=== PATIENT | male | born 1975 | race Caucasian/White ===

== ENCOUNTER → 2022-11-20 23:19 | Outpatient (CLI) | payer BC, SELFPAY ==
[2022-11-20 18:17] LABS: Basophils # 0.1 K/mm3 (0-0.2); Basophils % 0.5 % (0.1-2.0); Eosinophils # 0.4 K/mm3 (0.0-0.4); Eosinophils % 3.1 % (0.1-12.0); Hematocrit 51.3 % (42.0-52.0); Hemoglobin 16.8 g/dL (14.1-18.0); Lymphocytes # 2.5 K/mm3 (0.7-4.5); Mean Corpuscular HGB Conc 32.7 g/dL (31.8-35.4); Mean Corpuscular Volume 98.1 fl (80-94); Mean Platelet Volume 10.6 fl (7.4-10.4); Monocytes # 0.7 K/mm3 (0.1-1.0); Monocytes % 5.5 % (1.7-9.3); Neutrophils # 9.5 K/mm3 (1.8-7.8); Neutrophils % 71.8 % (37.0-80.0); Platelet Count 244 K/mm3 (142-424); Red Blood Count 5.23 M/mm3 (4.60-6.20); Red Cell Distribution Width 13.4 % (11.5-17.5); White Blood Count 13.2 K/mm3 (4.8-10.8)
[2022-11-20 18:20] LABS: Alanine Aminotransferase 38 U/L (12-78); Albumin Level 4.2 g/dl (3.5-5.0); Albumin/Globulin Ratio 1.6 (1.1-1.8); Alkaline Phosphatase 80 U/L (38-126); Anion Gap 14.7 mEq/L (5-15); Aspartate Amino Transferase 41 U/L (17-59); Bilirubin,Total 0.5 mg/dl (0.2-1.3); Blood Urea Nitrogen 11 mg/dl (9-20); Calcium 9.3 mg/dl (8.4-10.2); Carbon Dioxide 24 mmol/L (22.0-30.0); Chloride 108 mmol/L (98-107); Chol/HDL Ratio 6.4 (1-3.5); Cholesterol 192 mg/dl (140-200); Estimated Glomerular Filt Rate 72 ml/min (>60); GFR (African American) 88 ML/MIN (>60); Globulin 2.6 g/dL (1.3-3.2); Glucose 100 mg/dl (74-100); HDL Cholesterol 30 mg/dl (40-60); Potassium 4.7 mmoL/L (3.5-5.1); Sodium 142 mmol/L (136-145); Total Protein,Serum 6.8 g/dl (6.3-8.2); Triglycerides 223 mg/dl (30-150); VLDL Cholesterol 45 mg/dL (0-40)
[2022-11-20 18:27] LABS: Hemoglobin A1C 5.4 % (4.0-6.0)
[2022-11-20 18:31] LABS: Direct LDL Cholesterol 120.13 mg/dL (100-129)
[2022-11-20 18:39] LABS: 25-OH Vitamin D, Total 34.7 ng/mL (30-100)
[2022-11-20 18:52] LABS: Prostate Specific Ag Screen 0.8 ng/ml (0.0-4.0); Thyroid Stimulating Hormone 1.28 uIU/mL (0.465-4.68)
== END ==
LOC: LAB.DROPOF 23:19
PROVIDERS: PCP Student in an Organized Health Care Education/Training Program; Visit Provider Student in an Organized Health Care Education/Training Program
DX: Z13.29 Encounter for screening for other suspected endocrine disorder (principal); Z13.220 Encounter for screening for lipoid disorders; E55.9 Vitamin D deficiency, unspecified; Z83.3 Family history of diabetes mellitus; Z12.5 Encounter for screening for malignant neoplasm of prostate; Z76.89 Persons encountering health services in other specified circumstances
CPT/HCPCS: 80053; 80061; 82306; 83036; 84443; 85025; G0103

== ENCOUNTER → 2023-04-05 12:00 | Outpatient (CLI) | payer BC, SELFPAY ==
[2023-04-05 18:36] LABS: Basophils # 0.1 K/mm3 (0-0.2); Basophils % 0.4 % (0.1-2.0); Eosinophils # 0.4 K/mm3 (0.0-0.4); Eosinophils % 3.3 % (0.1-12.0); Hematocrit 50.8 % (42.0-52.0); Lymphocytes # 3.1 K/mm3 (0.7-4.5); Lymphocytes % 26.9 % (10-50); Mean Corpuscular HGB Conc 33.4 g/dL (31.8-35.4); Mean Corpuscular Hemoglobin 33.3 pg (27.0-31.2); Mean Corpuscular Volume 99.5 fl (80-94); Mean Platelet Volume 10.5 fl (7.4-10.4); Monocytes # 0.7 K/mm3 (0.1-1.0); Monocytes % 5.7 % (1.7-9.3); Neutrophils # 7.3 K/mm3 (1.8-7.8); Neutrophils % 63.6 % (37.0-80.0); Platelet Count 245 K/mm3 (142-424); White Blood Count 11.5 K/mm3 (4.8-10.8)
[2023-04-08 08:04] LABS: Peripheral Smear Review Scanned Result
== END ==
LOC: LAB.DROPOF 04-06 00:51
PROVIDERS: PCP Student in an Organized Health Care Education/Training Program; Visit Provider Student in an Organized Health Care Education/Training Program
DX: M25.561 Pain in right knee (principal); D72.829 Elevated white blood cell count, unspecified
CPT/HCPCS: 85025

== ENCOUNTER → 2023-04-15 12:12 | Outpatient (CLI) | payer BC, SELFPAY ==
[2023-04-15 15:01] LABS: Folate 4.28 ng/mL; Vitamin B12 > 1000 pg/mL (239-931)
== END ==
LOC: LAB 12:13
PROVIDERS: Visit Provider Internal Medicine Medical Oncology
DX: D75.89 Other specified diseases of blood and blood-forming organs (principal)
CPT/HCPCS: 36415; 82607; 82746

== ENCOUNTER 2023-06-23 21:00 | Outpatient (CLI) | payer BC, SELFPAY ==
[2023-06-23 17:54] LABS: Adenovirus,PCR Not Detected (NotDetected); Coronavirus 19, PCR Not Detected (NotDetected); Coronavirus 229E Not Detected (NotDetected); Coronavirus NL63 Not Detected (NotDetected); Coronavirus OC43 Not Detected (NotDetected); Coronovirus HKU1,PCR Not Detected (NotDetected); Human Metapneumovirus Not Detected (NotDetected); Influenza A, PCR Not Detected (NotDetected); Influenza AH1, 2009 Not Detected (NotDetected); Influenza AH1, PCR Not Detected (NotDetected); Influenza AH3,PCR Not Detected (NotDetected); Influenza B, PCR Not Detected (NotDetected); Parainfluenza 1, PCR Not Detected (NotDetected); Parainfluenza 2, PCR Not Detected (NotDetected); Parainfluenza 3, PCR Not Detected (NotDetected); Parainfluenza 4, PCR Not Detected (NotDetected); Respiratory Syncytial Virus Not Detected (NotDetected); Rhinovirus/Enterovirus Not Detected (NotDetected)
== END 2023-06-23 23:59 ==
LOC: LAB.DROPOF 21:00
PROVIDERS: PCP Nurse Practitioner Family; Visit Provider Nurse Practitioner Family
DX: R68.89 Other general symptoms and signs (principal); J02.9 Acute pharyngitis, unspecified; R11.0 Nausea; R50.9 Fever, unspecified; Z20.828 Contact with and (suspected) exposure to other viral communicable diseases
CPT/HCPCS: 87581; 87632; 87635; 87798

== ENCOUNTER 2023-09-06 12:31 | Outpatient (CLI) | payer BC, SELFPAY ==
[2023-09-06 18:47] LABS: Basophils # 0.1 K/mm3 (0-0.2); Basophils % 0.8 % (0.1-2.0); Eosinophils # 0.5 K/mm3 (0.0-0.4); Eosinophils % 4.2 % (0.1-12.0); Hematocrit 51.8 % (42.0-52.0); Hemoglobin 16.7 g/dL (14.1-18.0); Lymphocytes # 2.7 K/mm3 (0.7-4.5); Lymphocytes % 24.4 % (10-50); Mean Corpuscular HGB Conc 32.3 g/dL (31.8-35.4); Mean Corpuscular Hemoglobin 32.8 pg (27.0-31.2); Mean Corpuscular Volume 101.5 fl (80-94); Mean Platelet Volume 10.2 fl (7.4-10.4); Monocytes # 0.6 K/mm3 (0.1-1.0); Monocytes % 5.6 % (1.7-9.3); Neutrophils # 7.2 K/mm3 (1.8-7.8); Neutrophils % 65.1 % (37.0-80.0); Platelet Count 245 K/mm3 (142-424); Red Cell Distribution Width 13.7 % (11.5-17.5)
[2023-09-06 18:56] LABS: Alanine Aminotransferase 53 U/L (12-78); Albumin Level 4.4 g/dl (3.5-5.0); Albumin/Globulin Ratio 1.6 (1.1-1.8); Alkaline Phosphatase 81 U/L (38-126); Anion Gap 12.1 mEq/L (5-15); Aspartate Amino Transferase 50 U/L (17-59); Bilirubin,Total 0.9 mg/dl (0.2-1.3); Blood Urea Nitrogen 16 mg/dl (9-20); Calcium 9.3 mg/dl (8.4-10.2); Carbon Dioxide 22 mmol/L (22.0-30.0); Chloride 107 mmol/L (98-107); Chol/HDL Ratio 7.8 (1-3.5); Cholesterol 233 mg/dl (140-200); Estimated Glomerular Filt Rate 65 ml/min (>60); GFR (African American) 79 ML/MIN (>60); Globulin 2.8 g/dL (1.3-3.2); Glucose 111 mg/dl (74-100); HDL Cholesterol 30 mg/dl (40-60); Potassium 4.1 mmoL/L (3.5-5.1); Sodium 137 mmol/L (136-145); Total Protein,Serum 7.2 g/dl (6.3-8.2); Triglycerides 281 mg/dl (30-150); VLDL Cholesterol 56 mg/dL (0-40)
[2023-09-06 19:07] LABS: Direct LDL Cholesterol 129.13 mg/dL (100-129)
[2023-09-06 19:13] LABS: 25-OH Vitamin D, Total 15.1 ng/mL (30-100)
[2023-09-06 19:25] LABS: Hemoglobin A1C 5.6 % (4.0-6.0)
[2023-09-06 19:27] LABS: Thyroid Stimulating Hormone 1.37 uIU/mL (0.465-4.68)
== END 2023-09-06 23:59 | disposition home or self-care (01) ==
LOC: LAB.DROPOF 09-07 12:31
PROVIDERS: PCP Student in an Organized Health Care Education/Training Program; Visit Provider Student in an Organized Health Care Education/Training Program
DX: R20.0 Anesthesia of skin (principal); E55.9 Vitamin D deficiency, unspecified; Z68.25 Body mass index [BMI] 25.0-25.9, adult
CPT/HCPCS: 80053; 80061; 82306; 83036; 84443; 85025

== ENCOUNTER 2023-09-29 13:01 | Outpatient (CLI) | payer BC, SELFPAY ==
--- NOTE | 2023-09-29 13:01 | MR_ITS ---
FINAL REPORT CLINICAL HISTORY: left facial numbness, trigeminal neuralgia, LUE nu FINDINGS: Multiple projection images of the brain arterial vasculature were obtained without and with contrast. Raw data images were also reviewed. The internal carotid arteries are patent. The middle cerebral arteries and visualized proximal branches are patent. The anterior cerebral arteries are patent. The intracranial vertebral arteries are patent. The basilar artery is patent. The posterior cerebral arteries are patent. IMPRESSION: No major vessel occlusion. Reviewed, Interpreted and Dictated by Lamin Arenas MD Transcribed by Bianca Chua Authenticated and . [facility]
--- NOTE | 2023-09-29 13:01 | MR_ITS ---
FINAL REPORT CLINICAL HISTORY: left facial numbness, trigeminal neuralgia, lue nu FINDINGS: Multiplanar MR imaging of the brain was performed without and with contrast. There are minimal scattered foci of abnormal signal in the deep white matter. There are no foci of cortical signal abnormality. There is no evidence of intracranial hemorrhage or mass. No abnormal extra-axial fluid collection is seen. The ventricular size is within normal limits. There is no evidence of shift of the midline structures. The posterior fossa and brainstem have an unremarkable appearance. No area of abnormal restricted diffusion is identified. No abnormal contrast enhancement is seen. Normal major vessel vascular flow voids are noted. IMPRESSION: No acute intracranial abnormality identified. Minimal scattered foci of abnormal signal in the deep white matter. Reviewed, Interpreted and Dictated by Lamin Arenas MD Transcribed by Bianca Chua Authenticated and [facility]
[2023-09-29] MEDS: SODIUM CHLORIDE 0.9% 10ML SYR (RAD ONLY) 10 ML IV (14:01)
[2023-09-29] MEDS: GADOTERIDOL INJ 20ML SYRINGE 18 ML IV (14:01)
== END 2023-09-29 23:59 | disposition home or self-care (01) ==
LOC: RAD 13:01
PROVIDERS: PCP Student in an Organized Health Care Education/Training Program; Visit Provider Student in an Organized Health Care Education/Training Program
DX: R20.0 Anesthesia of skin (principal); G50.0 Trigeminal neuralgia
CPT/HCPCS: 70546; 70553; A9576

== ENCOUNTER 2023-11-16 12:08 | Emergency (ER) | payer BC, SELFPAY ==
[2023-11-16 12:09] VITALS: BP 131/88; PULSE 63; RESP 17; TEMP 36.7; O2SAT 100; BMI 26.4
--- NOTE | 2023-11-16 12:15 | ECG_ITS ---
APPROVED REPORT Exam: Resting ECG HR:54 bpm ECG Measurements Heart Rate 54 AXES OR 133 P 70 QRSd 109 QRS 75 QT 404 T 56 QTc 390 Conclusion SINUS BRADYCARDIA BORDERLINE ECG UNCONFIRMED REPORT Electronically signed by : RENNY LEIJA, 11/16/2023 13:27:47
--- NOTE | 2023-11-16 12:15 | HMH.EDGENADL ---
Discharge Plan Disposition Patient Disposition: Home, Self-Care Condition: Good Prescriptions Prescriptions: No Action cholecalciferol (vitamin D3) 1,250 mcg (50,000 unit) tablet 1,250 mcg PO WEEKLY Qty: 12 0RF atorvastatin 20 mg tablet 20 mg PO DAILY Qty: 90 3RF Referrals Follow up/Referrals: Kathy Orellana PA [Primary Care Provider] - See instructions Activity Restrictions/Add. Instructions Additional Instructions/Restrictions: You have been evaluated in the ED for your complaints. You may follow-up with your PCP in the next 3 to 5 days. Please return to ED for any new or worsening symptoms. . Take Tylenol and ibuprofen as needed for pain. Clinical Impressions Clinical Impression: Fall, Hip pain, left, Pain in sacrum Discharge ED Provider: Benjamin Boone Adult HPI General Chief complaint: Fall Stated complaint: AO fall 2:00 15/ lower back pain Time Seen by Provider: 11/16/23 12:13 History of Present Illness HPI narrative: 48-year-old male with past medical history significant for HLD presents today with spouse for evaluation concerning fall that occurred around 2 PM yesterday. Patient reportedly fell about 6 to 7 feet through their deck. He did hit his head during his fall but did not lose consciousness. Spouse states that he seemed dazed after hitting his head and she also noted that he had a period of shaking which resolved after a few minutes with patient being at his baseline thereafter. He was able to ambulate without difficulty throughout the day. Today he complains of left hip pain and sacral pain. Denies any headache, neck pain, back pain, chest pain, abdominal pain, other extremity pain or any other associated symptoms at this time. He is not on blood thinners. No further complaints Related Data Previous Rx's Medication Instructions Recorded atorvastatin 20 mg tablet 20 mg PO DAILY #90 tabs 09/07/23 cholecalciferol (vitamin D3) 1,250 1,250 mcg PO WEEKLY #12 tabs 10/06/23 mcg (50,000 unit) tablet Allergies Allergy/AdvReac Type Severity Reaction Status Date / Time No Known Allergies Allergy Verified 10/05/23 13:06 [facility] Disclaimer: The information contained in this section may have been updated after the patient was seen, as this information can be updated by other users. Medical History Right knee pain Family history of diabetes mellitus Family history of coronary artery disease Tobacco use disorder Surgical History No significant past surgical history Family History Father Diabetes Hypertension Alcoholism Mother Diabetes Social History Smoking Status: Current every day smoker tobacco type: cigarettes packs per day: 1 alcohol intake: current alcohol intake frequency: holidays/special occasions only substance use type: denies use current occupational status: employed Travel in the last 8 weeks: None adopted: No caregiver/support person: No foster care: No household members: family housing: house lives independently: Yes marital status: number of children: 1 service: No residential: No pets and animals: Yes Hx Recent Travel: No sexually active: Yes ROS Obtained: Yes All systems reviewed & no additional complaints except as documented Physical Exam General General appearance: alert and in no apparent distress Head Head exam: atraumatic, normocephalic and other (Small superficial abrasion lateral to the right eye) Eye Eye exam: Present normal appearance, PERRL and EOMI ENT ENT exam: Present normal oropharynx and mucous membranes moist Neck Neck exam: Present full ROM; Absent meningismus Respiratory Respiratory exam: Absent respiratory distress, wheezes, stridor or accessory muscle use Cardiovascular Cardiovascular exam: Present normal rhythm Abdominal Exam Abdominal exam: Present soft; Absent distention, tenderness, guarding, rebound or rigidity Extremities Exam Extremities exam: Present normal inspection and full ROM Back Exam Back exam: Present full ROM; Absent tenderness Neurological Exam Neurological exam: Present alert, oriented X3 and CN II-XII intact; Absent motor sensory deficit Psychiatric Psychiatric exam: Present normal affect and normal mood Skin Skin exam: Present warm and dry Medical Decision Making Medical Records Medical records reviewed: Yes I reviewed the patient's medical records. Toby Inquiry Pt receiving controlled substance: No Toby was queried for this patient: No Vital Signs: 11/16/23 12:09 11/16/23 13:00 11/16/23 13:30 Temperature 98.0 F Temperature Source Oral Pulse Rate 54 L 59 L Pulse Rate [Left Radial] 63 Respiratory Rate 17 Blood Pressure 131/92 H 130/79 Blood Pressure [Right Arm] 131/88 Blood Pressure Mean [Right Arm] 102 Blood Pressure Source Blood Pressure Position 02 Sat by Pulse Oximetry 100 97 97 Oxygen Delivery Method Room Air Room Air 11/16/23 13:57 11/16/23 13:58 Temperature 98.0 F 98.4 F Temperature Source Oral Pulse Rate 60 56 L Pulse Rate [Left Radial] Respiratory Rate 13 14 Blood Pressure 130/79 130/79 Blood Pressure [Right Arm] Blood Pressure Mean [Right Arm] Blood Pressure Source Automatic Cuff Blood Pressure Position Sitting 02 Sat by Pulse Oximetry Oxygen Delivery Method Room Air Orders (Tests/Meds): ORDERS Category Date Time Status CT head/brain wo con Stat Cat Scan 11/16/23 12:24 Completed Hip XR left minimum 2 views [XR hip LT 2-3V w/pelvis] Exams 11/16/23 12:24 Completed Stat XR sacrum coccyx min 2V Stat Exams 11/16/23 12:24 Completed Medical Decision Narrative: 48-year-old male with past medical history significant for HLD presents today with spouse for evaluation concerning fall that occurred around 2 PM yesterday. Patient reportedly fell about 6 to 7 feet through their deck. He did hit his head during his fall but did not lose consciousness. Spouse states that he seemed dazed after hitting his head and she also noted that he had a period of shaking which resolved after a few minutes with patient being at his baseline thereafter. He was able to ambulate without difficulty throughout the day. Today he complains of left hip pain and sacral pain. Denies blood thinner use. On assessment he was hemodynamically stable and in no acute distress. He was able to ambulate without difficulty. Chest clear to auscultation bilaterally. Abdomen soft nondistended and nontender to palpation. No midline tenderness palpation of the C/T/L-spine. He did have a small superficial abrasion lateral to the right eye. No other external signs of trauma here. Nonfocal neurological exam. He did have mild tenderness to palpation over the left hip and mild tenderness over the sacral region. Other physical exam findings unremarkable. Differential diagnoses include not limited to intracranial bleed, concussion, hip fracture, sacral fracture, musculoskeletal pain, among others Patient did not want any pain medications while in the ED. His CT head on my informal interpretation did not show any acute head bleeds. X-ray of the left hip including pelvis and sacrum did not show any acute fractures. On reassessment patient remains hemodynamically stable and in no acute distress. He and his significant other have noted that they would like to be discharged at this time given that patient's symptoms are well-controlled at this time. I discussed with patient/family that his CT head results are not finalized however I did not note any acute head bleeds on my informal interpretation. I also discussed with him that I do not note any acute bony abnormalities on plain films. Shared decision-making discussion was had and given reassuring physical exam both before and after reassessment, I will call to update patient with his results. He has noted that in the event that there are any abnormalities he can return. Provided him with strict return precautions and instructions concerning follow-up. He verbalized understanding and agreed with plan. Subsequently discharged. Note: 1431: patient's x-ray of the left hip including the pelvis, sacral x-ray and CT head all without any acute abnormalities. I did call patient and relayed these results. He states that he remains improved. Critical Care Critical Care Time Critical Care Time: No
--- NOTE | 2023-11-16 12:24 | XR_ITS ---
FINAL REPORT CLINICAL HISTORY: pain after a fall FINDINGS: AP and lateral views of the sacrum and coccyx were obtained. There is no prior exam for comparison. There is no acute fracture or other acute osseous abnormality. The SI joints are symmetric bilaterally. The sacrococcygeal articulation appears within normal limits. No acute soft tissue abnormality is present. IMPRESSION: No acute abnormality of the sacrum or coccyx. Reviewed, Interpreted and Dictated by Linda Beach MD Transcribed by Yumiko Noriega Authenticated and [facility]
--- NOTE | 2023-11-16 12:24 | CT_ITS ---
FINAL REPORT TECHNIQUE: Thin section axial images were obtained from skull base to vertex without contrast. Coronal reconstruction images were obtained from the axial data. Exam was performed using dose reduction technique. CLINICAL HISTORY: fall with head injury COMPARISON: None FINDINGS: There is no mass effect or midline shift. There is no hydrocephalus. There is no intracranial hemorrhage. The posterior fossa is without acute abnormality. The basilar cisterns are preserved. There is mild right periorbital and infraorbital soft tissue edema. No acute osseous abnormality is identified. IMPRESSION: No acute intracranial abnormality. Reviewed, Interpreted and Dictated by Linda Beach MD Transcribed by Yumiko Noriega Authenticated and [facility]
--- NOTE | 2023-11-16 12:24 | XR_ITS ---
FINAL REPORT CLINICAL HISTORY: pain after a fall FINDINGS: AP and frog leg views of the left hip were obtained. There is no prior exam for comparison. There is no acute fracture or dislocation. Joint space is preserved. Soft tissues are within normal limits. IMPRESSION: No acute osseous abnormality of the left hip. If pain persists, MR is recommended. Reviewed, Interpreted and Dictated by Linda Beach MD Transcribed by Yumiko Noriega Authenticated and [facility]
[2023-11-16 13:00] VITALS: BP 131/92; PULSE 54; O2SAT 97
[2023-11-16 13:30] VITALS: BP 130/79; PULSE 59; O2SAT 97
[2023-11-16 13:57] VITALS: BP 130/79; PULSE 60; RESP 13; TEMP 36.7
[2023-11-16 13:58] VITALS: BP 130/79; PULSE 56; RESP 14; TEMP 36.9; O2SAT 98
== END 2023-11-16 13:57 | disposition home or self-care (01) ==
PROVIDERS: Emergency Provider Emergency Medicine; PCP Student in an Organized Health Care Education/Training Program
DX: M53.3 Sacrococcygeal disorders, not elsewhere classified (principal); M25.552 Pain in left hip; R00.1 Bradycardia, unspecified; F17.210 Nicotine dependence, cigarettes, uncomplicated; W17.89XA Other fall from one level to another, initial encounter
CPT/HCPCS: 70450; 72220; 73502; 93005; 99284

== ENCOUNTER 2024-04-29 17:39 | Emergency (ER) | payer BC, SELFPAY ==
[2024-04-29 17:41] VITALS: BP 156/91; PULSE 60; RESP 16; TEMP 36.6; O2SAT 98; BMI 25.2; BMI 27.6
--- NOTE | 2024-04-29 17:53 | XR_ITS ---
PROCEDURE INFORMATION: Exam: XR Left Tibia and Fibula Exam date and time: 04/29/2024 6:13 PM Age: 48 years old Clinical indication: Injury or trauma; Fall; Blunt trauma; Ankle; Left TECHNIQUE: Imaging protocol: Radiologic exam of the left tibia and fibula. Views: 2 views. COMPARISON: CR XR TIBIA FIBULA LT 2V 04/29/2024 6:13 PM FINDINGS: Bones/joints: Partially visualized comminuted intra-articular fracture of the calcaneus. Soft tissues: Normal. IMPRESSION: Partially visualized comminuted intra-articular fracture of the calcaneus. No evidence for more proximal fracture.
--- NOTE | 2024-04-29 17:53 | XR_ITS ---
PROCEDURE INFORMATION: Exam: XR Left Foot Exam date and time: 04/29/2024 6:13 PM Age: 48 years old Clinical indication: Injury or trauma; Fall; Blunt trauma; Ankle; Left TECHNIQUE: Imaging protocol: Radiologic exam of the left foot. Views: 3 or more views. COMPARISON: CR XR ANKLE LT MIN 3V 04/29/2024 6:13 PM FINDINGS: Bones/joints: Comminuted intra-articular fracture of the calcaneus. There is a plantar calcaneal enthesophyte. Small osseous fragment adjacent to the lateral malleolus may reflect old injury. Soft tissues: Normal. IMPRESSION: Comminuted intra-articular fracture of the calcaneus.
--- NOTE | 2024-04-29 17:53 | XR_ITS ---
PROCEDURE INFORMATION: Exam: XR Left Ankle Exam date and time: 04/29/2024 6:13 PM Age: 48 years old Clinical indication: Injury or trauma; Fall; Blunt trauma; Ankle; Left TECHNIQUE: Imaging protocol: Radiologic exam of the left ankle. Views: 3 or more views. COMPARISON: CR XR ANKLE LT MIN 3V 04/29/2024 6:13 PM FINDINGS: Bones/joints: Comminuted intra-articular fracture of the calcaneus. Soft tissues: Normal. IMPRESSION: Comminuted intra-articular fracture of the calcaneus.
--- NOTE | 2024-04-29 17:55 | ED_ITS ---
Discharge Plan Disposition Patient Disposition: Home, Self-Care Condition: Good Prescriptions Prescriptions: New hydrocodone-acetaminophen 7.5-325 mg tablet 1 tab PO Q6H PRN (Reason: pain) Qty: 14 0RF ondansetron 4 mg tablet,disintegrating 4 mg PO Q6H PRN (Reason: nausea and vomiting) Qty: 10 0RF No Action cholecalciferol (vitamin D3) 1,250 mcg (50,000 unit) tablet 1,250 mcg PO WEEKLY Qty: 12 0RF atorvastatin 20 mg tablet 20 mg PO DAILY Qty: 90 3RF Referrals Follow up/Referrals: Kathy Orellana PA [Primary Care Provider] - See instructions Umer Hernandez DO [Staff Physician] - See instructions Activity Restrictions/Add. Instructions Additional Instructions/Restrictions: NO Weight bearing rest Ice with cold pack for 20 minutes remove may repeat for comfort every hour Elevate with ankle above your heart as much as possible to help reduce swelling and therefore pain Ibuprofen every 6 hours as needed for pain or inflammation. Follow-up immediately if new or worsening symptoms or no noticeable improvement over the next 3-5 days. call ortho on Wednesday for an appointment Follow-up with orthopedic trauma at [facility] address: [address] [place] [address], [facility], [address] [place] [address] Hours: Sun:?Closed Wed-Wed:?7:30 am - 5:00 pm Sat:?Closed Phone: Call?[phone] Call?[phone] Clinical Impressions Clinical Impression: Closed left calcaneal fracture Qualifiers: Encounter type: initial encounter Calcaneus location: body Fracture alignment: displaced Qualified Code(s): S92.012A - Displaced fracture of body of left calcaneus, initial encounter for closed fracture Foot fracture, left Qualifiers: Encounter type: initial encounter Fracture type: closed Qualified Code(s): S 92.902A - Unspecified fracture of left foot, initial encounter for closed fracture Instructions Patient Instructions: DI for Foot Fracture Print Language Print Language: Afghan Discharge ED Provider: Cleve Aamya General Adult HPI <Rose Mary Iverson ([facility] [employer] - Last Filed: 04/29/24 20:29> General Chief complaint: Extremity Injury, Lower Stated complaint: AO 12-28 fell out of attic Time Seen by Provider: 04/29/24 17:41 Mode of Arrival: Ambulatory Source of Information: Patient Limitations: No Limitations History of Present Illness HPI narrative: 48-year-old male presents for left foot and ankle pain. Patient states he was put in the [place] tree away in the attic and as he was coming off of the ladder he fell and landed on his feet. Patient states pain is worse with walking, cannot bear weight Related Data Previous Rx's ?Medication ?Instructions ?Recorded atorvastatin 20 mg tablet 20 mg PO DAILY #90 tabs 09/07/23 cholecalciferol (vitamin D3) 1,250 1,250 mcg PO WEEKLY #12 tabs 10/06/23 mcg (50,000 unit) tablet hydrocodone 7.5 mg-acetaminophen 1 tab PO Q6H PRN pain #14 tabs 04/29/24 325 mg tablet ondansetron 4 mg disintegrating 4 mg PO Q6H PRN nausea and 04/29/24 tablet vomiting #10 tabs Allergies Allergy/AdvReac Type Severity Reaction Status Date / Time No Known Allergies Allergy Verified 10/05/23 13:06 PFS <[facility] - Last Filed: 04/29/24 20:29> PFS Disclaimer: The information contained in this section may have been updated after the patient was seen, as this information can be updated by other users. Medical History (Reviewed 04/29/24 @ 17:57 by Rose Mary [facility]) Right knee pain Family history of diabetes mellitus Family history of coronary artery disease Tobacco use disorder Surgical History (Reviewed 04/29/24 @ 17:57 by Rose Mary [facility] [employer]) No significant past surgical history Family History (Reviewed 04/29/24 @ 17:57 by Rose Mary [facility] [employer]) Diabetes Father Mother Alcoholism Father Hypertension Father Social History (Reviewed 04/29/24 @ 17:57 by Rose [facility] [employer]) Smoking Status: Never smoker alcohol intake: current alcohol intake frequency: holidays/special occasions only substance use type: denies use current occupational status: employed Travel in the last 8 weeks: None adopted: No caregiver/support person: No foster care: No household members: family housing: house lives independently: Yes marital status: number of children: 1 service: No mcc: No pets and animals: Yes Hx Recent Travel: No sexually active: Yes Have you lived/traveled outside [place] in past 30 days?: No Contact w/someone who lives/traveled outside US past 30 days?: No Exposure to someone with infectious disease in past 14 days?: No Do you have a fever (greater than 100.4 F or 38 C)?: No Have you tested positive for COVID-19: No Exposed to someone with COVID-19 in past 14 days?: No Do you have a sore throat?: No Do you have a cough?: No Do you have any weakness?: No Do you have any diarrhea?: No Are you experiencing any unusual bleeding?: No Do you have any muscle aches/pain?: No Do you have any abdominal pain?: No Are you experiencing loss of taste or smell?: No Other Medical History Have you received the Pneumonia Vaccine: No <Rose Mary Iverson ([facility] [employer] - Last Filed: 04/29/24 20:29> ROS Obtained: Yes Systems reviewed as appropriate & no additional complaints except as documented Physical Exam <Rose Mary Iverson ([facility] [employer] - Last Filed: 04/29/24 20:29> General General appearance: alert and in no apparent distress Neck Neck exam: Present normal inspection and full ROM Respiratory Respiratory exam: Present normal lung sounds bilaterally Cardiovascular Cardiovascular exam: Present regular rate and normal rhythm Abdominal Exam Abdominal exam: Present soft and normal bowel sounds; Absent tenderness Expanded Lower Extremity Exam Left: Ankle image: 2 1. Swelling Back Exam Back exam: Present normal inspection and full ROM; Absent tenderness Neurological Exam Neurological exam: Present alert and oriented X3 Skin Skin exam: Present warm and intact Medical Decision Making <Rose Mary Iverson ([facility] [employer] - Last Filed: 04/29/24 20:29> Medical Records Medical records reviewed: Yes I reviewed the patient's medical records. Screening: Per USPSTF and CDC recommendations, given the prevalence of disease in our region, it is our hospital?s policy to screen for HIV and viral Hepatitis for all patients aged 18 and over and those with ongoing risk factors. Toby Inquiry Pt receiving controlled substance: No Vital Signs: 04/29/24 17:41 04/29/24 18:45 04/29/24 20:40 Temperature 97.8 F 98.4 F Temperature Source Oral Pulse Rate 62 66 Pulse Rate [Right] 60 Respiratory Rate 16 16 Blood Pressure 141/83 H 126/98 H Blood Pressure [Right Arm] 156/91 H Blood Pressure Mean [Right Arm] 112 Blood Pressure Source [Right Arm] Automatic Cuff 02 Sat by Pulse Oximetry 98 99 Oxygen Delivery Method Room Air Room Air Room Air Orders (Tests/Meds): ED MEDICATIONS Discontinued Medications Generic Name Dose Route Start Last Admin Trade Name Freq PRN Reason Stop Dose Admin Hydrocodone Bitart/Acetaminophen 1 tab 04/29/24 19:44 04/29/24 19:55 Hydrocodone/Apap 5/325 Mg Tablet PO 04/29/24 19:45 1 tab ONCE ONE Administration ORDERS Category Date Time Status CT ankle LT wo con Stat Cat Scan 04/29/24 18:[address] foot LT wo con Stat Cat Scan 04/29/24 18:28 Completed Foot XR left minimum 3 views [XR foot LT min 3V] Stat Exams 04/29/24 17:53 Completed Tibia/fibula XR left 2 views [XR tibia fibula LT 2V] Exams 04/29/24 17:53 Completed Stat XR ankle LT min 3V Stat Exams 04/29/24 17:53 Completed Radiology Data #1: Image(s): Ankle and Foot/Toes Image Reviewed: Yes I reviewed the patient's radiology results and Yes I have reviewed radiologist's interpretation Preliminary Findings: Abnormal Comminuted intra-articular fracture of the calcaneus Medical Decision Narrative: In summary patient is a 48-year-old male who presents to the emergency department for evaluation of left ankle pain. Patient states he was put the [address] away was up and down the ladder in the attic coming down from the ladder fell backwards and landed on his left foot. Patient denies any other injury .patient is hemodynamically stable upon arrival, afebrile. Left ankle swelling noted cap refill good. Differential diagnosis includes fracture. Initial workup will be conducted with x-ray. Initial inventions include x-ray of ankle and Ct. Initial workup reviewed by me Comminuted intra-articular fracture of the calcaneus . Upon repeat evaluation patient sitting on side of the bed walking boot applied. Given this patient will be discharged home given Dr. Hernandez's phone number to call on Wednesday for an appointment. I informally interpreted patient's chest x-ray/CT-Comminuted intra-articular fracture of the calcaneus <Cleve Amaya MD - Last Filed: 04/29/24 20:55> Vital Signs: 04/29/24 17:41 04/29/24 18:45 04/29/24 20:40 Temperature 97.8 F 98.4 F Temperature Source Oral Pulse Rate 62 66 Pulse Rate [Right] 60 Respiratory Rate 16 16 Blood Pressure 141/83 H 126/98 H Blood Pressure [Right Arm] 156/91 H Blood Pressure Mean [Right Arm] 112 Blood Pressure Source [Right Arm] Automatic Cuff 02 Sat by Pulse Oximetry 98 99 Oxygen Delivery Method Room Air Room Air Room Air Orders (Tests/Meds): ED MEDICATIONS Discontinued Medications Generic Name Dose Route Start Last Admin Trade Name Freq PRN Reason Stop Dose Admin Hydrocodone Bitart/Acetaminophen 1 tab 04/29/24 19:44 04/29/24 19:55 Hydrocodone/Apap 5/325 Mg Tablet PO 04/29/24 19:45 1 tab ONCE ONE Administration ORDERS Category Date Time Status CT ankle LT wo con Stat Cat Scan 04/29/24 18:[address] foot LT wo con Stat Cat Scan 04/29/24 18:28 Completed Foot XR left minimum 3 views [XR foot LT min 3V] Stat Exams 04/29/24 17:53 Completed Tibia/fibula XR left 2 views [XR tibia fibula LT 2V] Exams 04/29/24 17:53 Completed Stat XR ankle LT min 3V Stat Exams 04/29/24 17:53 Completed Medical Decision Narrative: In summary patient is a 48-year-old male who presents to the emergency department for evaluation of left ankle pain. Patient states he was put the [address] away was up and down the ladder in the attic coming down from the ladder fell backwards and landed on his left foot. Patient denies any other injury .patient is hemodynamically stable upon arrival, afebrile. Left ankle swelling noted cap refill good. Differential diagnosis includes fracture. Initial workup will be conducted with x-ray. Initial inventions include x-ray of ankle and Ct. Initial workup reviewed by me Comminuted intra-articular fracture of the calcaneus . Upon repeat evaluation patient sitting on side of the bed walking boot applied. Given this patient will be discharged home given Dr. Hernandez's phone number to call on Wednesday for an appointment. I informally interpreted patient's chest x-ray/CT-Comminuted intra-articular fracture of the calcaneus I was consulted by the [facility], and we discussed the complexity of the problems being addressed. I approved the treatment and management plan for this patient's care in the Emergency Department, thus performing a substantive portion of the medical decision making. I independently interviewed and examined patient. Patient does not have an open fracture, but does have moderate amount of swelling and deformity of left calcaneus. Neurovascular intact, able to range digits. Independent interpretation of CT with comminuted calcaneus fracture with concern for ligamentous injury given widened tibiotalar joint as well. Patient given hydrocodone/acetaminophen. Conversation had with patient and family, patient adamantly denying/declining going to trauma center tonight. Wants to follow-up outpatient. Given patient hemodynamically stable, I feel this is appropriate. I did touch base with orthopedics here, recommended urgent follow-up and this was relayed to patient and family. They voiced their understanding. Hydrocodone sent for home-going, patient placed in orthopedic boot. Patient and family do seem reliable for follow-up. Because patient at baseline without signs or symptoms of clinical decompensation, deemed appropriate for discharge. Results were relayed to patient who voiced understanding and were agreeable to outpatient management and follow up. I discussed my clinical impression with patient and answered all questions. At this time, the evidence for any other entities in the differential is insufficient to warrant any further testing or ED observation. This was explained as well. Advisory was given that persistent or worsening symptoms require further evaluation. I confirmed the understanding of this discussion. Cleve Amaya MD Critical Care <Rose Mary Iverson ([facility] [employer] - Last Filed: 04/29/24 20:29> Critical Care Time Critical Care Time: No
--- NOTE | 2024-04-29 18:28 | CT_ITS ---
PROCEDURE INFORMATION: Exam: CT Left Lower Extremity, Foot Exam date and time: 04/29/2024 6:32 PM Age: 48 years old Clinical indication: Injury or trauma; Fall; Blunt trauma; Foot; Left; Additional info: Calc fracture and ligamentous injury TECHNIQUE: Imaging protocol: CT of the left lower extremity without contrast was performed. Exam focused on the foot. Radiation optimization: All CT scans at this facility use at least one of these dose optimization techniques: automated exposure control; mA and/or kV adjustment per patient size (includes targeted exams where dose is matched to clinical indication); or iterative reconstruction. COMPARISON: 1. CR XR FOOT LT MIN 3V 04/29/2024 6:[address] ANKLE LT WO CON 04/29/2024 6:32 PM 3. CR XR ANKLE LT MIN 3V 04/29/2024 6:13 PM FINDINGS: Bones/joints: There is a comminuted fracture of the calcaneus with numerous free fracture fragments and extensive soft tissue swelling. Fracture lines extend to multiple articular surfaces. Soft tissues: See Bones/joints finding. IMPRESSION: Comminuted intra-articular fracture of the calcaneus. Better evaluation of flexor and extensor tendons as well as other soft tissues can be accomplished with MRI if warranted.
--- NOTE | 2024-04-29 18:28 | CT_ITS ---
PROCEDURE INFORMATION: Exam: CT Left Lower Extremity, Ankle Exam date and time: 04/29/2024 6:32 PM Age: 48 years old Clinical indication: Injury or trauma; Fall; Blunt trauma; Heel; Left; Additional info: Ligamentous injury TECHNIQUE: Imaging protocol: CT of the left lower extremity without contrast was performed. Exam focused on the ankle. Radiation optimization: All CT scans at this facility use at least one of these dose optimization techniques: automated exposure control; mA and/or kV adjustment per patient size (includes targeted exams where dose is matched to clinical indication); or iterative reconstruction. COMPARISON: 1. CR XR ANKLE LT MIN 3V 04/29/2024 6:[address] FOOT LT WO CON 04/29/2024 6:32 PM FINDINGS: Bones/joints: There is a comminuted intra-articular fracture of the calcaneus. Soft tissues: Normal. IMPRESSION: 1. There is a comminuted intra-articular fracture of the calcaneus. 2. Evaluation for soft tissue injury by MRI can be considered.
[2024-04-29 18:45] VITALS: BP 141/83; PULSE 62; O2SAT 99
[2024-04-29] MEDS: HYDROCODONE/APAP 5/325 MG TABLET 1 TAB PO (19:55)
[2024-04-29 20:40] VITALS: BP 126/98; PULSE 66; RESP 16; TEMP 36.9; O2SAT 98
== END 2024-04-29 20:41 | disposition home or self-care (01) ==
PROVIDERS: Emergency Provider Emergency Medicine; PCP Student in an Organized Health Care Education/Training Program
DX: S92.902A Unspecified fracture of left foot, initial encounter for closed fracture (principal); S92.012A Displaced fracture of body of left calcaneus, initial encounter for closed fracture; M79.672 Pain in left foot; M25.572 Pain in left ankle and joints of left foot; W11.XXXA Fall on and from ladder, initial encounter; Y93.89 Activity, other specified; Y92.008 Other place in unspecified non-institutional (private) residence as the place of occurrence of the external cause
CPT/HCPCS: 73590; 73610; 73630; 73700; 99284